=== PATIENT | male | born 1995 | race Caucasian/White ===

== ENCOUNTER 2018-10-21 21:14 | Emergency (ER) | payer OTHER ==
--- NOTE | 2018-10-21 21:21 | ED Physician Documentation ---
PD HPI LOWER EXT INJURY - Stated complaint Stated Complaint: RT KNEE INJURY - Chief complaint Chief Complaint: Trauma Ext - History obtained from History obtained from: Patient - History of Present Illness PD HPI LOW EXT INJURY LOCATION: Right, Knee Type of injury: Twist Where injury occurred: Park Timing - onset: Today (He states he was playing in the park with his dog and doing some running back and forth and had a twisted the knee in a valgus strain. He felt a pop and was having pain with walking and range of motion. No swelling is yet. He went home and put some ice on it and then came in for evaluation. He has borrowed crutches.) Timing - duration: Hours Timing - details: Abrupt onset, Still present Worsened by: Moving (to full extension), Other (walking). No: Palpating Associated symptoms: No: Weakness, Numbness, Swelling Contributing factors: No: Prior ortho surgery Similar symptoms before: Has not had sx before Recently seen: Not recently seen Review of Systems Skin: denies: Abrasion (s), Laceration (s) Musculoskeletal: denies: Back pain Neurologic: denies: Focal weakness, Numbness PD PAST MEDICAL HISTORY - Past Medical History Respiratory: None Musculoskeletal: None - Past Surgical History Past Surgical History: Yes HEENT: Tonsil/Adenoidectomy - Present Medications Home Medications: Ambulatory Orders Medication Instructions Recorded Confirmed Ibuprofen 600 mg PO TID PRN #25 tablet 10/21/18 Tramadol HCl 50 mg PO Q6H PRN #15 tablet 10/21/18 - Allergies Allergies/Adverse Reactions: Allergies Allergy/AdvReac Type Severity Reaction Status Date / Time No Known Drug Allergies Allergy Verified 10/21/18 21:20 - Social History Does the pt smoke?: No Smoking Status: Never smoker Does the pt drink ETOH?: Yes Does the pt have substance abuse?: No - Immunizations Immunizations are current?: Yes - POLST Patient has POLST: No PD ED PE NORMAL - Vitals Vital signs reviewed: Yes - General General: Alert and oriented X 3, No acute distress, Well developed/nourished - Derm Derm: Normal color, Warm and dry - Extremities Extremities: Other (There is tenderness over the MCL area. There is some mild shifting tenderness on range of motion. There is no effusion noted. The rest of the knee is not tender. Passive range of motion is good with stress test and limiting showing pain but no gross laxity on valgus stress. Cruciate testing is without pain nor laxity. Rotational movement of the knee seem to be okay) - Neuro Neuro: No motor deficit, No sensory deficit Results - Vitals Vitals: Vital Signs - 24 hr 10/21/18 10/21/18 21:18 22:21 Temperature 36.2 C L 37.2 C Heart Rate 73 56 L Respiratory 14 16 Rate Blood Pressure 147/90 H 116/64 O2 Saturation 97 97 Oxygen O2 Source Room air - Rads (name of study) right knee Radiology: Prelim report reviewed (no fractures. normal study.) PD MEDICAL DECISION MAKING - ED course Complexity details: considered differential, d/w patient Departure - Departure Disposition: Home, Self Care Clinical Impression: Strain of right knee Qualifiers: Encounter type: initial encounter Qualified Code(s): S86.911A - Strain of unspecified muscle(s) and tendon(s) at lower leg level, right leg, initial encounter Condition: Stable Record reviewed to determine appropriate education?: Yes Instructions: ED Meniscal Injury Knee Poss, ED Sprain Knee Collateral Ligaments Follow-Up: GAETANO ENCARNACION MD [Primary Care Provider] - Prescriptions: Ibuprofen 600 mg PO TID PRN #25 tablet PRN Reason: Pain Tramadol HCl 50 mg PO Q6H PRN #15 tablet PRN Reason: Pain Comments: Your x-ray appears normal. Most knee injuries are soft tissue such as cartilage in ligaments. I think your injury feels mostly MCL but there could be some medial meniscal injury as well. Both will be treated with the knee brace crutches and limited use (partial weightbearing is okay) for 1-2 weeks. Anti- inflammatories ibuprofen 3 times a day and add Tylenol or tramadol if needed for pain. Ice rest and elevate your knee often tonight and tomorrow morning to minimize swelling. Follow-up with your primary care in 4-5 days for a recheck. Discharge Date/Time: 10/21/18 22:23
[2018-10-21] MEDS ORDERED: IBUPROFEN 600 MG TABLET PO STA (21:43)
[2018-10-21] MEDS ORDERED: traMADol 50 MG TABLET PO STA (22:10)
--- NOTE | 2018-10-21 22:13 | XRAY Report ---
Reason: valgus stress with medial pain at knee Procedure Date: 10/21/2018 Accession Number: [id number] / [id number] Procedure: XR - Knee 4 View RT CPT Code: FULL RESULT: EXAM: RIGHT KNEE RADIOGRAPHY EXAM DATE: 10/21/2018 10:00 PM. CLINICAL HISTORY: Valgus stress with medial pain at knee. COMPARISON: None. TECHNIQUE: 4 views. FINDINGS: Bones: No acute fracture seen. Joints: No dislocation. Joint spaces appear intact. No joint effusion identified. Soft Tissues: There may be minimal soft tissue swelling. IMPRESSION: 1. No acute osseous abnormality seen. RADIA
[2018-10-21 22:22] VITALS: BP 116/64
== END 2018-10-21 22:23 | disposition home or self-care (01) ==
LOC: ED 21:14
DX: S86.911A Strain of unspecified muscle(s) and tendon(s) at lower leg level, right leg, initial encounter (principal); X50.1XXA Overexertion from prolonged static or awkward postures, initial encounter; Y93.02 Activity, running; Y92.830 Public park as the place of occurrence of the external cause
CPT/HCPCS: 73564; 99283; A9270

== ENCOUNTER 2018-10-25 16:36 | Outpatient (CLI) | payer OTHER ==
--- NOTE | 2018-10-26 14:12 | MRI Report ---
Reason: PAIN IN RIGHT KNEE Procedure Date: 10/25/2018 Accession Number: [id number] / [id number] Procedure: MRI - Knee RT W/O CPT Code: FULL RESULT: EXAM: RIGHT KNEE MRI WITHOUT CONTRAST EXAM DATE: 10/25/2018 05:24 PM. CLINICAL HISTORY: Pain in right knee. COMPARISON: None. TECHNIQUE: Multiplanar, multisequence T1-weighted and fluid-sensitive sequences of the knee without contrast. Other: None. FINDINGS: Bones: Abnormal signal on both sides of the medial compartment. No fracture lines. Small amount of marrow edema at the posterior weight-bearing surface of the tibial plateau laterally. 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 Small amount of grade 3 chondromalacia at the lateral tibial plateau. Medial Meniscus: Vertically-oriented tear through the mid body of the medial meniscus and displacement of a large fragment into the intercondylar notch. Lateral Meniscus: The lateral meniscus is intact. Cruciate Ligaments: The anterior and posterior cruciate ligaments are intact. Collateral Ligaments: Partial-thickness tear at the MCL with some surrounding increased T2 signal. Series 501 image 21. LCL is normal. Tendons: The quadriceps, patellar, semimembranosus, and popliteus tendons are unremarkable. Musculature: No edema or fatty atrophy. Other: Small joint effusion. No popliteal cyst. No loose bodies. The medial and lateral retinacula are intact. There is some subcutaneous edema at the medial aspect of the knee. IMPRESSION: 1. Abnormal bone marrow signal on both sides of the medial compartment. Small amount of marrow edema at the posterior weight-bearing aspect of the lateral tibial plateau. Some overlying grade 3 chondromalacia in these regions. 2. There is a flipped bucket handle tear at the medial meniscus with displacement of the fragment into the intercondylar notch. 3. Lateral meniscus, cruciates appear unremarkable. Partial-thickness tear at the proximal MCL anteriorly. 4. Small joint effusion. Some subcutaneous edema at the medial aspect of the knee. RADIA
== END 2018-10-25 16:37 | disposition home or self-care (01) ==
LOC: DI 16:36
PROVIDERS: ATTEND Anesthesiology Pain Medicine
DX: M94.261 Chondromalacia, right knee (principal); S83.211A Bucket-handle tear of medial meniscus, current injury, right knee, initial encounter; S83.411A Sprain of medial collateral ligament of right knee, initial encounter; M25.461 Effusion, right knee

== ENCOUNTER 2018-11-09 09:38 | Day surgery (SDC) | payer OTHER ==
[~2018-11-09 09:38] MED LIST: BUPIVACAINE 0.25% PF 10 ML VIAL ONE; EPINEPHrine 1 MG/ML AMP ONE; ceFAZolin 2 GM/50 ML 2 GM/50 ML BAG IV ONE
--- NOTE | 2018-11-09 10:28 | ANESTHESIA ---
Pre-Anesthesia VS, & Labs - Diagnosis R knee meniscus and ACL tears - Procedure R knee meniscus repair vs debridement, possible ACL reconstruction Vital Signs: Temp Pulse Resp BP Pulse Ox 36.3 C L 57 L 16 121/82 H 99 11/09/18 09:55 11/09/18 09:55 11/09/18 09:55 11/09/18 09:55 11/09/18 09:55 Height 6 ft 2 in Weight (kg) 90.72 kg Body Mass Index 25.7 - NPO >8 hours Home Medications and Allergies Home Medications: Ambulatory Orders Ascorbic Acid [Vitamin C] 500 mg PO 11/06/18 Cholecalciferol (Vitamin D3) [Vitamin D3] 1,000 unit PO 11/06/18 Multivitamin [Multiple Vitamins] 1 each PO 11/06/18 [place]-3/Dha/Epa/Fish Oil [Fish Oil 1,000 mg Softgel] 1 each PO 11/06/18 Turmeric 400 mg PO 11/06/18 Ascorbic Acid [Vitamin C] 500 mg PO 11/06/18 Cholecalciferol (Vitamin D3) [Vitamin D3] 1,000 unit PO 11/06/18 Multivitamin [Multiple Vitamins] 1 each PO 11/06/18 [place]-3/Dha/Epa/Fish Oil [Fish Oil 1,000 mg Softgel] 1 each PO 11/06/18 Turmeric 400 mg PO 11/06/18 Allergies/Adverse Reactions: Allergies Allergy/AdvReac Type Severity Reaction Status Date / Time No Known Drug Allergies Allergy Verified 11/06/18 09:45 Anes History & Medical History - Anesthetic History Anesthesia Complications: reports: No previous complications Family history of Anesthesia Complications: Denies Family history of Malignant Hyperthermia: Denies - Medical History Cardiovascular: reports: None Pulmonary: reports: None Urinary: reports: None Musculoskeletal: reports: Other Endocrine/Autoimmune: reports: None Skin: reports: None Smoking Status: Never smoker - Surgical History Eyes Ears Nose Throat (EENT): Tonsil/Adenoidectomy Exam General: Alert, Oriented x3 Mouth Opening: Greater than 4 Fingerbreadths Neck Mobility: Normal Mallampati classification: I Thyromental Distance: 4-6 cm Respiratory: Lungs clear, Normal breath sounds, No respiratory distress Cardiovascular: Regular rate Neurological: Normal speech Mental/Cognitive Status: Alert/Oriented X3 Cognitive Status: Within normal limits Plan Anesthesia Type: General, Femoral Block (possible post-op if ACL repair needed) Consent for Procedure(s) Verified and Reviewed: Yes Code Status: Attempt Resuscitation ASA classification: 1-Healthy patient Is this case an emergency?: No
[2018-11-09] MEDS ORDERED: LACTATED RINGERS 1,000 ML IV ONE (10:36)
[2018-11-09] MEDS ORDERED: ceFAZolin 2 GM/50 ML 2 GM/50 ML BAG IV ONE (14:50)
[2018-11-09] MEDS ORDERED: PROPOFOL 200 MG/20 ML VIAL IVP ONE (14:50)
[2018-11-09] MEDS ORDERED: ONDANSETRON 4 MG/2 ML VIAL IVP ONE (14:50)
[2018-11-09] MEDS ORDERED: MIDAZOLAM 2 MG/2 ML VIAL IVP ONE (14:50)
[2018-11-09] MEDS ORDERED: ePHEDrine 50 MG/ML VIAL IVP ONE (14:50)
[2018-11-09] MEDS ORDERED: DEXAMETHASONE 4 MG/ML VIAL IVP ONE (14:50)
[2018-11-09] MEDS ORDERED: LIDOCAINE-MPF 1% 5 ML VIAL SUBQ ONE (14:50)
[2018-11-09] MEDS ORDERED: fentaNYL 100 MCG/2 ML VIAL IVP ONE (14:50)
[2018-11-09] MEDS ORDERED: KETOROLAC 30 MG/ML VIAL IVP ONE (14:50)
[2018-11-09] MEDS ORDERED: GLYCOPYRROLATE 1 MG/5 ML VIAL IVP ONE (14:50)
[2018-11-09] MEDS ORDERED: BUPIVACAINE 0.25% PF 30 ML VIAL SUBQ ONE ×2 (15:38)
[2018-11-09] MEDS ORDERED: EPINEPHrine 1 MG/ML AMP IVP ONE (15:38)
[2018-11-09] MEDS: HYDROmorphone 0.5 MG/0.5 ML SYRINGE ONE ×2 (16:06→16:18)
[2018-11-09] MEDS ORDERED: oxyCODONE 5 MG TABLET PO PRN (16:09)
[2018-11-09] MEDS ORDERED: ONDANSETRON 4 MG/2 ML VIAL IVP PRN (16:09)
[2018-11-09] MEDS ORDERED: fentaNYL 100 MCG/2 ML VIAL ONE (16:26)
--- NOTE | 2018-11-09 16:33 | OPERATIVE REPORT ---
Operative Report - General Procedure Date: 11/09/18 Planned Procedure: Right knee arthroscopy, medial meniscal repair versus debridement, possible ACL reconstruction Pre-Op Diagnosis: Right knee bucket-handle medial meniscal tear Procedure Performed: Right knee arthroscopy, medial meniscal repair Post Op Diagnosis: Right knee bucket-handle medial meniscal tear - Procedure Note Primary Surgeon: CINDY BLANCA Secondary Surgeon: DARIUSZ TREJO Anesthesia Technique: General LMA Estimated Blood Loss (mL): 5 - Other Other Information/Narrative: OPERATION PERFORMED: Right knee arthroscopy, medial meniscus repair Exam under anesthesia: Extension: 2 degrees Flexion: 125 degrees Ilene: IIA Pivot Shift: Slight pivot glide, symmetric to the contralateral leg Valgus Stress: Stable Varus Stress: Stable Right knee: 1. Patella: Normal, small area of focal chondral wear centrally 2. Trochlea: Normal 3. Medial Compartment: Bucket-handle tear of the medial meniscus, displaced into the intercondylar notch. Tear extent from near the posterior root to the mid body. Anterior horn intact, femoral and tibial cartilage normal 4. Lateral Compartment: Lateral meniscal root intact, lateral meniscus normal, femoral and tibial cartilage normal 5. ACL and PCL: ACL demonstrated some focal punctate areas of resolving hematoma, however tibial and femoral attachments intact, solid endpoint observed on arthroscopic Ilene exam. COMPLICATIONS: None IMPLANTS: [employer] FasT-Fix 3604 Tourniquet: approximately 80 minutes, 250 mmHg, right thigh Indications for procedure: The patient is an otherwise healthy 22-year-old male with a history of right knee noncontact injury approximately 3 weeks ago. He felt the knee move awkwardly followed by pop and some pain. He was able to bear weight with some difficulty immediately afterwards. Pain medial with difficulty fully extending the leg. Subsequently the knee swelled and became stiff. He denies similar prior episodes. MRI demonstrated a displaced bucket-handle tear of the medial meniscus, and exam demonstrated an approximately 30 degree extensor block to motion. Based on these findings, the acuity of the injury, and the patient age, we discussed the recommendation for operative reduction of the meniscal tear, with meniscal repair versus debridement. We further discussed arthroscopic examination of the ACL, with potential for possible repair should it be found at time of surgery to be functionally incompetent. The risks, benefits, and alternatives were discussed. Risks included pain, bleeding, infection, damage to nearby structures, lack of symptom relief, implant complications, stiffness, need for further surgeries, DVT, PE, stroke, and even . Questions were answered, and he desired to proceed with surgery. He signed a written consent form. Procedure Details: The patient was met in the pre-operative hold area. Persistence of symptoms and consent was verified. The patient verified the surgical site as the right knee. The patient then met with anesthesia and was brought back to the operating room. The patient was placed supine on the operating table. A general anesthetic was administered and LMA was placed. A well-padded tourniquet was placed on the right thigh. The right lower extremity was then prepped and draped in the usual sterile fashion. A surgical timeout was then performed. The correct patient, the correct procedure, and the correct surgical site were confirmed by everyone in the room. Perioperative antibiotics had been administered. After surgical timeout and administration of antibiotics the Escmarch was used to exsanguinate the right lower extremity and the tourniquet was raised. An 11 blade scalpel was used to make an anterolateral arthroscopic portal. The arthroscope was introduced into the knee and the anteromedial portal was created under direct visualization using needle localization. A diagnostic arthroscopy was performed with the above-stated findings. Meniscal Repair: The meniscus was reduced utilizing the scope trocar, and the tear interval was prepared using a ball rasp and arthroscopic sucker shaver, care was taken to minimize the amount of soft tissue removed. The tear was repaired using all inside technique with 4 [employer] FasT-Fix 360s, starting anteriorly and proceeding posteriorly. A combination of vertical and oblique mattress sutures were used above and below the meniscus. Following repair, a small partial-thickness radial tear at the junction of the posterior horn and body was debrided to a stable rim using a meniscal biter and sucker shaver. The arthroscopic probe was then introduced into the knee, the meniscus probed and found to be stable. An arthroscopic awl was used to create several small perforations in the femoral notch, to enhance the intra-articular healing environment. The arthroscopic instruments were then removed from the knee. The portals were closed with 3-0 Monocryl and 3-0 Nylon. 0.25% Marcaine was injected into the periarticular soft tissues. The tourniquet was lowered. The incisions were dressed with Xeroform gauze, 4x4 gauze, an ABD and JOSUE stocking. The surgical drapes were removed. The patient was awoken from anesthesia, extubated, transferred to the hospital bed, and taken to the PACU for recovery in good condition. Postoperative plan: 1. Discharge home from the same day surgery facility once the patient has met discharge criteria. 2. Nonweightbearing on the operative leg until follow-up. Keep leg locked in extension 3. Return to clinic in 5-7 days for wound check. Will start formal PT at that time. 4. We will rehab per meniscal repair protocol, anticipate return to full activities in approximately 5 months.
[2018-11-09 17:14] VITALS: BP 130/63
== END 2018-11-09 17:45 | disposition home or self-care (01) ==
LOC: SDS 09:38
PROVIDERS: ATTEND Orthopaedic Surgery
PROC: 0SQC4ZZ Repair Right Knee Joint, Percutaneous Endoscopic Approach (ICD-10-PCS; principal; 2018-11-09 11:00)
DX: S83.211A Bucket-handle tear of medial meniscus, current injury, right knee, initial encounter (principal); S83.411A Sprain of medial collateral ligament of right knee, initial encounter
CPT/HCPCS: 29882; C1713; J0690; J1170; J7120